=== PATIENT | male | born 1965 | race Two or more races ===

== ENCOUNTER 2018-03-06 06:59 | Day surgery (SDC) | payer OTHER ==
[~2018-03-06] VITALS: Ht 172.7 cm; Wt 111.1 kg
[2018-03-06 07:26] VITALS: BP 142/82
[2018-03-06 14:10] VITALS: BP 131/80
== END 2018-03-06 11:55 | disposition home or self-care (01) ==
LOC: DS 06:59 → OR 09:30 → GI 09:30 → DS 11:55
PROVIDERS: Internal Medicine Gastroenterology
PROC: 0DBG8ZZ Excision of Left Large Intestine, Via Natural or Artificial Opening Endoscopic (ICD-10-PCS; principal; 2018-03-06 09:30)
DX: Z12.11 Encounter for screening for malignant neoplasm of colon (principal); K57.30 Diverticulosis of large intestine without perforation or abscess without bleeding; D12.4 Benign neoplasm of descending colon; K64.8 Other hemorrhoids; E11.9 Type 2 diabetes mellitus without complications; E66.9 Obesity, unspecified
CPT/HCPCS: 45378; J1200; J1610; J2250; J2310; J3010; J3490

== ENCOUNTER 2020-05-01 10:22 | Emergency (ER) | payer OTHER ==
[~2020-05-01] VITALS: Ht 170.2 cm; Wt 111.1 kg
[2020-05-01 10:24] VITALS: Ht 170.2 cm; Wt 111.1 kg
[2020-05-01 11:42] VITALS: BP 158/94
[2020-05-02] MEDS ORDERED: METFORMIN HCL1000 M2 PO (09:59)
[2020-05-02] MEDS ORDERED: GLIPIZIDE XL10 M1 PO (10:00)
[2020-05-02] MEDS ORDERED: COZAAR25 M1 PO (10:00)
[2020-05-02] MEDS ORDERED: SIMVASTATIN5 M2 PO (10:00)
[2020-05-02] MEDS ORDERED: BETIMOL5 M1 OU (10:01)
[2020-05-02] MEDS ORDERED: ASPIRIN ADULT L81 M3 PO (10:01)
[2020-05-02] MEDS ORDERED: [UNRECOGNIZED DRUG - OTHER] PO (10:02)
[2020-05-02] MEDS ORDERED: APAP325 MG PO (10:02)
[2020-05-02] MEDS ORDERED: NYQUIL PO (10:02)
== END 2020-05-01 11:42 | disposition home or self-care (01) ==
LOC: ED 10:22
DX: U07.1 COVID-19 (principal); J80 Acute respiratory distress syndrome; I10 Essential (primary) hypertension; E11.9 Type 2 diabetes mellitus without complications
CPT/HCPCS: 82962

== ENCOUNTER 2020-05-02 07:49 | Inpatient (IN) | payer OTHER, SELFPAY ==
[~2020-05-02] VITALS: Ht 172.7 cm; Wt 104.3 kg
[2020-05-02 07:53] VITALS: Ht 172.7 cm; Wt 104.3 kg
[2020-05-02 09:11] LABS: BASOPHIL % 0.6 % (0.2-1.5); PLATELET COUNT 185 x10^3mcL (152-348); RED CELL DISTRIBUTION WIDTH 12.7 % (12.1-16.2)
[2020-05-02 09:11] LABS: microscopic required? NO
[2020-05-02 09:28] LABS: UA SPECIFIC GRAVITY <=1.005 (1.005-1.035); urine erythrocyte NEGATIVE (NEGATIVE)
[2020-05-02 09:49] LABS: ALBUMIN 4.2 g/dL (3.4-5.0); ALKALINE PHOSPHATASE 70 U/L (46-116); ALT/SGPT 145 U/L (16-63); AST/SGOT 54 U/L (15-37); BILIRUBIN TOTAL 0.5 mg/dL (0.20-1.00); CARBON DIOXIDE 22.7 mmol/L (21-32); CHLORIDE SERUM 98 mmol/L (98-107); GFR1 > 60 mL/min; GLUCOSE SERUM 288 mg/dL (74-106); LACTIC DEHYDROGENASE (LDH) 153 U/L (100-190); SODIUM SERUM 135 mmol/L (136-145)
[2020-05-02] MEDS ORDERED: METFORMIN HCL1000 M2 PO (09:59)
[2020-05-02] MEDS ORDERED: COZAAR25 M1 PO (10:00)
[2020-05-02] MEDS ORDERED: GLIPIZIDE XL10 M1 PO (10:00)
[2020-05-02] MEDS ORDERED: SIMVASTATIN5 M2 PO (10:00)
[2020-05-02] MEDS ORDERED: BETIMOL5 M1 OU (10:01)
[2020-05-02] MEDS ORDERED: ASPIRIN ADULT L81 M3 PO (10:01)
[2020-05-02] MEDS ORDERED: APAP325 MG PO (10:02)
[2020-05-02] MEDS ORDERED: [UNRECOGNIZED DRUG - OTHER] PO (10:02)
[2020-05-02] MEDS ORDERED: NYQUIL PO (10:02)
[2020-05-02 10:04] LABS: rbc morphology (normal/abnorm) NORMAL (NORMAL)
[2020-05-02 10:23] LABS: TOTAL PROTEIN, SERUM 8.6 g/dL (6.4-8.2)
[2020-05-02 10:31] LABS: CALCIUM 9.6 mg/dL (8.5-10.1)
[2020-05-03 00:26] VITALS: BP 169/98
[2020-05-03 01:30] VITALS: BP 145/85
[2020-05-03 05:36] VITALS: BP 151/98
[2020-05-03 07:19] LABS: BASOPHIL % 0.3 % (0.2-1.5); PLATELET COUNT 169 x10^3mcL (152-348); RED CELL DISTRIBUTION WIDTH 12.6 % (12.1-16.2)
[2020-05-03 07:52] LABS: ALBUMIN 3.7 g/dL (3.4-5.0); ALKALINE PHOSPHATASE 59 U/L (46-116); ALT/SGPT 109 U/L (16-63); AST/SGOT 42 U/L (15-37); BILIRUBIN TOTAL 0.4 mg/dL (0.20-1.00); CALCIUM 8.9 mg/dL (8.5-10.1); CARBON DIOXIDE 27.6 mmol/L (21-32); CHLORIDE SERUM 101 mmol/L (98-107); CREATININE SERUM 0.9 mg/dL (0.7-1.3); GFR1 > 60 mL/min; GLUCOSE SERUM 225 mg/dL (74-106); POTASSIUM SERUM 4.7 mmol/L (3.5-5.1); SODIUM SERUM 139 mmol/L (136-145); TOTAL PROTEIN, SERUM 7.6 g/dL (6.4-8.2); TRIGLYCERIDES 99 mg/dL (<150)
[2020-05-03 07:58] LABS: CHOLESTEROL 124 mg/dL (<200); CHOLESTEROL/HDL RATIO 4.3; HDL CHOLESTEROL 29 mg/dL (40-60)
[2020-05-03 08:00] VITALS: BP 140/76
[2020-05-03 11:51] LABS: rbc morphology (normal/abnorm) NORMAL (NORMAL)
[2020-05-03 12:24] VITALS: BP 118/69
[2020-05-03 16:22] VITALS: BP 148/73
== END 2020-05-03 17:38 | disposition home or self-care (01) | DRG 137 ==
LOC: ED 07:49 → DU 13:07
PROVIDERS: Emergency Medicine; ADMIT Hospitalist; ATTEND Hospitalist
DX: U07.1 COVID-19 (principal); E11.9 Type 2 diabetes mellitus without complications; I10 Essential (primary) hypertension; F41.9 Anxiety disorder, unspecified; E78.5 Hyperlipidemia, unspecified
CPT/HCPCS: 36600; 82962; 83880; 85378; 87804; G0378; J1650; U0003